=== PATIENT | female | born 1945 | race Caucasian/White ===

== ENCOUNTER 2016-08-02 09:46 | Inpatient (IN) | payer OTHER ==
[~2016-08-02] VITALS: Ht 160 cm; Wt 98.9 kg
[2016-08-02 09:47] VITALS: BP 136/102; PULSE 91; RESP 24; TEMP 99; O2SAT 90
--- NOTE | 2016-08-02 09:47 | NUR ---
Arrived as walk in in distress with 1-2 word sentences audible wheezes, accessory muscle use. After sitting for 2-3 min during triage at bedside, resp status appears improved speaking in full sentences. C/O cough, bronchitis. Placed in room 1 . Placed on ladle filler, blood pressure machine and pulse oximeter. To gown for exam. Side rails up. Report given to Krysten KIMBLE.
--- NOTE | 2016-08-02 09:52 | NUR ---
Patient alert and oriented x4. Speaking in full sentences, no acute respiratory distress noted at this time, patient states after sitting in bed that distress improved. has had intermittent shortness of breath at home for a long time at home but came to ER today because shortness of breath worsened, especially with walking. Wheezing noted throughout lung feilds. also has had productive cough for a few days. Denies chest pain, pressure or radiating pain of any kind. No other complaints/injuries per patient or noted.
--- NOTE | 2016-08-02 09:53 | NUR ---
Dr. Larson at bedside
[2016-08-02] MEDS ORDERED: methylPREDNISolone SOD SUCC/PF 62.5 MG/ML VIAL IVP ONE (10:00)
[2016-08-02] MEDS ORDERED: ALBUTEROL SULFATE 0.083% 2.5 MG/3 ML VIAL.NEB IH ONE ×2 (10:00→11:30)
[2016-08-02] MEDS ORDERED: IPRATROPIUM BROM 0.5 MG/2.5 ML VIAL.NEB (ATROVENT) IH ONE (10:00)
[2016-08-02] MEDS ORDERED: IPRATROPIUM/ALBUTEROL SULFATE 3 ML AMPUL.NEB ONE (10:05)
--- NOTE | 2016-08-02 10:15 | NUR ---
Patient placed on 2L 02 following ABG blood draw and RT treatment due to 02 saturation dropping to 88-89 at times on room air. Dr Larson aware. Addendum: 08/02/16 at 1210 by CONCHITA %
[2016-08-02 10:17] LABS: ABG TOTAL HEMOGLOBIN 14.1 G/dL (12.0-18.0); BLOOD GAS BASE EXCESS 1.9 mmol/L (-3.0-3.0); BLOOD GAS COHb% 0.6 % (0.5-1.5); BLOOD GAS HHB 10.7 % (0.0-6.0); BLOOD GAS PH 7.422 (7.350-7.450); BLOOD O2Hb% 88.4 % (94.0-97.0)
[2016-08-02 10:22] LABS: BASOPHILS % (AUTO) 0.2 % (0.0-2.0); EOSINOPHILS # (AUTO) 0.2 K/uL (0.0-0.4); EOSINOPHILS % (AUTO) 1.4 % (0.0-4.0); HEMATOCRIT 40.8 % (36-48); HEMOGLOBIN 13.5 g/dL (12.0-16.0); LYMPHOCYTES # (AUTO) 1.6 K/uL (1.0-5.5); LYMPHOCYTES % (AUTO) 9.8 % (20.5-51.5); MEAN CORPUSCULAR HEMOGLOBIN 28 pg (27-31); MEAN CORPUSCULAR HGB CONC 33 % (32-36); MEAN CORPUSCULAR VOLUME 84 fL (79.0-98.0); MONOCYTES # (AUTO) 0.6 K/uL (0.0-1.0); MONOCYTES % (AUTO) 3.5 % (1.7-9.3); NEUTROPHILS # (AUTO) 14.1 K/uL (1.8-7.7); NEUTROPHILS % (AUTO) 85.1 % (40.0-70.0); PLATELET COUNT (AUTO) 348 K/uL (130-430); RED BLOOD CELL COUNT(AUTO) 4.86 MIL/uL (4.2-6.2); RED CELL DISTRIBUTION WIDTH 13.8 % (9.0-15.0); WHITE BLOOD COUNT (AUTO) 16.5 K/uL (4.8-10.8)
[2016-08-02 10:33] LABS: CREATININE 1.11 mg/dL (0.55-1.30); POTASSIUM 4.1 mmol/L (3.5-5.1)
[2016-08-02 10:38] LABS: TOTAL PROTEIN, SERUM 7.6 g/dL (6.4-8.3)
[2016-08-02 11:03] LABS: BILIRUBIN,URINE NEGATIVE (NEGATIVE); CLARITY/URINE CLEAR (CLEAR); COLOR,URINE YELLOW (YELLOW); GLUCOSE,URINE NEGATIVE (NEGATIVE); KETONES,URINE NEGATIVE (NEGATIVE); LEUKOCYTE ESTERASE ,URINE TRACE (NEGATIVE); NITRITE, URINE NEGATIVE (NEGATIVE); PH,URINE 5.5 (5.0-8.0); PROTEIN URINE 2+ (NEGATIVE); UROBILINOGEN,URINE 0.2 (0.2-1.0)
[2016-08-02 11:10] LABS: BLOOD, URINE TRACE (NEGATIVE)
[2016-08-02] MEDS ORDERED: cefTRIAXone 1 GM IVPB PREMIX 50 ML IV ONE (11:15)
[2016-08-02] MEDS ORDERED: ENAL5TAB85 PO (11:24)
[2016-08-02] MEDS ORDERED: AMLO5TAB4 PO (11:24)
[2016-08-02] MEDS ORDERED: ACET-1172 PO (11:24)
[2016-08-02] MEDS ORDERED: OMEP10CA4 PO (11:24)
[2016-08-02] MEDS ORDERED: DIAZ2TAB3 PO (11:24)
[2016-08-02] MEDS ORDERED: MECL-123 PO (11:24)
[2016-08-02] MEDS ORDERED: OMEG1CAP55 PO (11:24)
[2016-08-02] MEDS ORDERED: TOPXL100 PO (11:24)
[2016-08-02] MEDS ORDERED: HYDR12.55 PO (11:24)
--- NOTE | 2016-08-02 11:25 | NUR ---
Patient just placed on breathing treatment, tolerating well, will take to floor when finished.
--- NOTE | 2016-08-02 11:25 | NUR ---
Medication reconciliation completed with information provided by patient . Any prior medication reconciliation on file was reviewed and corrected.
[2016-08-02 11:29] LABS: BACTERIA,URINE FEW /HPF (None Seen)
[2016-08-02 11:30] LABS: MUCUS,URINE 1+ /LPF (None Seen)
--- NOTE | 2016-08-02 11:42 | NUR ---
ADMIT NOTE Received pt from ER to the floor with a diagnosis of COPD exacerbation, acute respiratory insufficiency. Admission process initiated. Patient oriented to pain management, safety and call light-teach back done.
[2016-08-02 11:51] VITALS: BP 143/64; PULSE 97; RESP 16; TEMP 98; O2SAT 91
--- NOTE | 2016-08-02 11:51 | NUR ---
Patient will be admitted to care of Dr. Cheema. Admitted to tele unit. Will go to room 135 admit room. Summary report printed. Report given to Carrie KIMBLE at bedside.
--- NOTE | 2016-08-02 12:30 | NUR ---
Initial Notes Pt aaox4 with complaints of mild headache. States she is hungry and maybe headache is from hunger. Informed pt lunch tray will be delivered shortly. Mild sob while talking but no distress noted. O2 via nasal canula in place @ 2L. Educated about fall and safety precautions. Encouraged to call for assistance. Call light within reach. Will monitor.
--- NOTE | 2016-08-02 14:30 | NUR ---
Rounds Pt asleep. No signs of facial grimacing for pain or discomfort. No distress noted. Will monitor.
--- NOTE | 2016-08-02 15:46 | NUR ---
Headache Pt complaints of headache and wants to take her routine medications at home. Informed pt that MD needs to review all home medications when she comes and does her rounds. Pt verbalized understanding.
[2016-08-02 15:51] VITALS: BP 131/58; PULSE 100; RESP 21; TEMP 97.6; O2SAT 91
[2016-08-02] MEDS ORDERED: ACETAMINOPHEN/CODEINE 300 MG-30 MG TABLET PO SCH (16:00)
[2016-08-02] MEDS ORDERED: ACETAMINOPHEN 325 MG TABLET PO PRN (16:00)
[2016-08-02] MEDS ORDERED: ACETAMINOPHEN/CODEINE 300 MG-30 MG TABLET PO ONE (16:00)
--- NOTE | 2016-08-02 16:00 | NUR ---
Dr. Anette SUTTON inside room assessing patient. Plan of care discussed.
[2016-08-02] MEDS ORDERED: IPRATROPIUM/ALBUTEROL SULFATE 3 ML AMPUL.NEB INH ONE (16:15)
[2016-08-02] MEDS ORDERED: ZOLPIDEM TARTRATE 5 MG TABLET PO PRN (16:15)
[2016-08-02] MEDS ORDERED: DIAZEPAM 2 MG TABLET (VALIUM) PO PRN (16:30)
[2016-08-02] MEDS ORDERED: PANTOPRAZOLE SODIUM 40 MG TAB PO ONE (16:45)
--- NOTE | 2016-08-02 17:02 | NUR ---
CONSULT PULMO HYPOXEMIA,COPD DR BRODY [phone] DR SANCHEZ HEAT REGULATOR S/W IDALIA EXCHANGE @ [phone]
[2016-08-02 17:56] VITALS: BP 131/58; PULSE 100
--- NOTE | 2016-08-02 18:30 | NUR ---
Closing notes Pt awake resting in bed. No complaints of pain at this time. Mild shortness of breath and difficulty breathing when patient starts talking and laughing. No distress noted. O2 via nasal canula @ 2L in place. Encouraged to call for assistance. Will endorse care to incoming nurse.
[2016-08-02 20:00] VITALS: BP 158/72; PULSE 107; RESP 20; TEMP 97.6; O2SAT 94
--- NOTE | 2016-08-02 20:00 | NUR ---
Initial PM Note Pt was received lying in bed fully AAO x4. No acute distress noted and no c/o pain or discomfort. Oxygen is on at 2L/min per NC and oxygen saturation is 94%. parts washer verified to be correct box for pt and it is showing sinus tachycardia with HR in the low 100's. Plan of care was discussed with pt. Saline lock is intact in RAC and no signs of infiltration noted at the IV site. Fall and safety precautions are in place. Pt was instructed to call for assistance as needed and pt verbalized understanding. Call light is with pt. Bed is in locked and lowest positions. Will continue to monitor pt.
[2016-08-02] MEDS: guaiFENesin/DEXTROMETHORPHAN 1 EACH TAB.ER.12H PO SCH (20:31)
[2016-08-02] MEDS: IPRATROPIUM/ALBUTEROL SULFATE 3 ML AMPUL.NEB INH SCH ×2 (20:38→20:39)
[2016-08-02] MEDS ORDERED: guaiFENesin/DEXTROMETHORPHAN 1 EACH TAB.ER.12H PO SCH (21:00)
[2016-08-02] MEDS ORDERED: METOPROLOL SUCCINATE 50 MG TAB.SR.24H (TOPROL XL) PO SCH (21:00)
--- NOTE | 2016-08-02 22:00 | NUR ---
Anxiety Pt is very anxious, but declined Valium or Ambien. Pt stated she needed Metoprolol because her heart rates are usually in the 80's, not in the 100's. Pt also informed RT she wanted her Albuterol HHN Tx reduced from 2.5mg to 1.25mg. MD was paged and pt was informed.
[2016-08-02] MEDS: methylPREDNISolone SOD SUCC/PF 62.5 MG/ML VIAL IVP SCH (22:15)
--- NOTE | 2016-08-02 22:28 | NUR ---
Dr. Anette Cheema called back and ordered one time Metoprol po. Albuterol HHN Tx was also reduced from 2.5mg q 6hrs to 1.25mg q 6hrs.
[2016-08-02] MEDS ORDERED: METOPROLOL SUCCINATE 50 MG TAB.SR.24H (TOPROL XL) PO ONE (22:30)
--- NOTE | 2016-08-03 | NUR ---
Rounds Pt is sleeping comfortably in bed. No acute distress noted. Call light is with pt.
[2016-08-03] MEDS: ALBUTEROL SULFATE 0.083% 2.5 MG/3 ML VIAL.NEB INH SCH ×2 (01:00→07:00)
--- NOTE | 2016-08-03 02:00 | NUR ---
Rounds Pt is sleeping without any distress noted. Call light is with pt.
--- NOTE | 2016-08-03 04:00 | NUR ---
Rounds Pt is sleeping quietly in bed.
[2016-08-03 04:10] VITALS: BP 138/72; PULSE 108; RESP 20; TEMP 98.9; O2SAT 94
[2016-08-03] MEDS: methylPREDNISolone SOD SUCC/PF 62.5 MG/ML VIAL IVP SCH ×3 (06:04→21:19)
--- NOTE | 2016-08-03 06:30 | NUR ---
Closing Note Pt is awake and resting comfortably in bed. All pt's needs were attended to. No fall or injury noted this shift. Will endorse to day shift nurse.
[2016-08-03 07:33] LABS: ALBUMIN 3.5 g/dL (3.4-4.8); CALCIUM 8.9 mg/dL (8.4-11.0); CREATININE 0.96 mg/dL (0.55-1.30); POTASSIUM 3.8 mmol/L (3.5-5.1); THYROID STIMULATING HORMONE 0.25 uIu/mL (0.34-4.82); TOTAL BILIRUBIN 0.4 mg/dL (0.0-1.0); TOTAL PROTEIN, SERUM 6.8 g/dL (6.4-8.3)
--- NOTE | 2016-08-03 08:00 | NUR ---
A/OX4, BREATHING EVEN AND UNLABORED WITH BILAT WHEEZES;WITH O2 AT 2L NC .IV SALINE LOCK TO RIGHT AC, #20, INTACT AND PATENTSAFETY AND FALL PRECAUTIONS IN PLACE.CALL LIGHT WITHIN REACH.
[2016-08-03 08:05] LABS: HEMATOCRIT 36.5 % (36-48); HEMOGLOBIN 12.4 g/dL (12.0-16.0); LYMPHOCYTES # (AUTO) 1.2 K/uL (1.0-5.5); LYMPHOCYTES % (AUTO) 9.5 % (20.5-51.5); MEAN CORPUSCULAR HEMOGLOBIN 28 pg (27-31); MEAN CORPUSCULAR HGB CONC 34 % (32-36); MEAN CORPUSCULAR VOLUME 84 fL (79.0-98.0); MONOCYTES # (AUTO) 0.2 K/uL (0.0-1.0); NEUTROPHILS # (AUTO) 10.9 K/uL (1.8-7.7); NEUTROPHILS % (AUTO) 88.5 % (40.0-70.0); PLATELET COUNT (AUTO) 306 K/uL (130-430); RED BLOOD CELL COUNT(AUTO) 4.38 MIL/uL (4.2-6.2); RED CELL DISTRIBUTION WIDTH 13.8 % (9.0-15.0); WHITE BLOOD COUNT (AUTO) 12.3 K/uL (4.8-10.8)
[2016-08-03] MEDS: ENALAPRIL MALEATE 5 MG TABLET (VASOTEC) PO SCH (08:37)
[2016-08-03] MEDS: guaiFENesin/DEXTROMETHORPHAN 1 EACH TAB.ER.12H PO SCH ×2 (08:37→21:19)
[2016-08-03] MEDS: amLODIPine BESYLATE 5 MG TABLET PO SCH (08:38)
[2016-08-03] MEDS: PANTOPRAZOLE SODIUM 40 MG TAB PO SCH (08:38)
[2016-08-03] MEDS: ACETAMINOPHEN/CODEINE 300 MG-30 MG TABLET PO PRN ×2 (08:53→17:41)
[2016-08-03] MEDS ORDERED: METOPROLOL SUCCINATE 50 MG TAB.SR.24H (TOPROL XL) PO SCH (09:00)
--- NOTE | 2016-08-03 10:20 | NUR ---
CARE DELEGATED TO LAMIN HOGUE. REPORT IS GIVEN TO HER
--- NOTE | 2016-08-03 11:20 | NUR ---
INITIAL NOTES RECEIVED PATIENT ON BED AWAKE.BREATHING EVEN AND UNLABORED WITH BILATERAL FAINT WHEEZES;WITH O2 AT 2L/M VIA NASAL CANNULA.WITH FEW EPISODES OF NONPRODUCTIVE COUGH.IV SALINE LOCK TO RIGHT ANTECUBITAL INTACT AND PATENT;NO SIGNS AND SYMPTOMS OF INFILTRATION.SAFETY AND FALL PRECAUTIONS IN PLACE.CALL LIGHT WITHIN REACH
[2016-08-03] MEDS: cefTRIAXone 1 GM IVPB PREMIX 50 ML IV SCH (11:49)
[2016-08-03 12:00] VITALS: BP 138/64; PULSE 97; RESP 21; TEMP 96.6; O2SAT 91
--- NOTE | 2016-08-03 12:22 | NUR ---
NOTES DR. ISBELL CAME AND EXAMINED THE PATIENT;WITH ORDERS MADE AND CARRIED OUT
--- NOTE | 2016-08-03 15:00 | NUR ---
NOTES CHECKED PATIENT;NO ACUTE DISTRESS
[2016-08-03 16:00] VITALS: BP 149/97; PULSE 92; RESP 21; TEMP 97.4; O2SAT 91
[2016-08-03] MEDS: LevALBUTEROL HCL 1.25 MG/0.5 ML *CONC.* VIAL.NEB (XOPENEX CONC.) INH SCH ×2 (16:56→19:00)
--- NOTE | 2016-08-03 17:30 | NUR ---
NOTES CHECKED PATIENT;NEEDS ATTENDED TO
--- NOTE | 2016-08-03 18:22 | NUR ---
CLOSING NOTES PATIENT ON BED AWAKE.BREATHING EVEN AND UNLABORED.NO ACUTE DISTRESS.IV SALINE LOCK INTACT AND PATENT;NO SIGNS AND SYMPTOMS OF INFILTRATION.SAFETY AND FALL PRECAUTIONS IN PLACE.CALL LIGHT WITHIN REACH.WILL ENDORSE TO NEXT SHIFT ACCORDINGLY
[2016-08-03] MEDS: IPRATROPIUM BROM 0.5 MG/2.5 ML VIAL.NEB (ATROVENT) INH SCH (19:15)
[2016-08-03 20:00] VITALS: BP 132/87; PULSE 74; RESP 20; TEMP 97.2; O2SAT 95
--- NOTE | 2016-08-03 20:00 | NUR ---
Initial PM Note Pt was received lying in bed fully AAO x4. Speech is clear and pt is able to make her needs known. Pt stated she had 3 soft bowel movements today and MD should be notified for diarrhea medication. Pt was informed if the stools were not watery, MD probably would not order medication. Pt stated an order should be obtained just in case diarrhea starts later. Pt informed MD would be paged. Oxygen is on at 2L/min per NC and oxygen saturation is 95%. bus driver/monitor is showing SR with HR in the 70's. Saline lock is intact in RAC and no signs of infiltration noted. Fall and safety precautions are in place. Pt was instructed to call for assistance as needed and pt verbalized understanding. Call light is with pt. Bed is in locked and lowest positions. Will continue to monitor pt.
--- NOTE | 2016-08-03 20:17 | NUR ---
PAGED PAGED CARLINE HUNTER AT [phone] SPOKE WITH NATALIA.
--- NOTE | 2016-08-03 21:00 | NUR ---
2ND PAGE OUT TO CARLINE BROWN AT [phone] SPOKE WITH ADONAY.
--- NOTE | 2016-08-03 21:05 | NUR ---
Dr. Anette Cheema called back and was informed pt is requesting diarrhea medication because pt had 3 soft bowel movements today. Dr. Cheema was informed pt is requesting the medication order in advance in case pt develops diarrhea. Dr. Cheema stated she would not order any diarrhea medication in advance. Pt was informed.
--- NOTE | 2016-08-03 22:30 | NUR ---
Rounds Pt is sleeping comfortably in bed with oxygen on at 2.5L/min per NC. No respiratory distress noted. Call light is with pt.
[2016-08-04 00:10] VITALS: BP 155/83; PULSE 74; RESP 18; TEMP 98.4; O2SAT 97
--- NOTE | 2016-08-04 00:30 | NUR ---
Rounds Pt is sleeping comfortably in bed. No acute distress noted. Call light is with pt.
[2016-08-04] MEDS: LevALBUTEROL HCL 1.25 MG/0.5 ML *CONC.* VIAL.NEB (XOPENEX CONC.) INH SCH ×2 (01:00→07:00)
--- NOTE | 2016-08-04 02:30 | NUR ---
Rounds Pt is sleeping comfortably in bed. Call light is with pt.
[2016-08-04 04:23] VITALS: BP 155/75; PULSE 77; RESP 20; TEMP 97.5; O2SAT 94
--- NOTE | 2016-08-04 04:30 | NUR ---
Rounds Pt is sleeping without any distress noted. Call light is with pt.
[2016-08-04] MEDS: methylPREDNISolone SOD SUCC/PF 62.5 MG/ML VIAL IVP SCH ×3 (06:01→22:05)
[2016-08-04 07:08] LABS: BASOPHILS % (AUTO) 0.1 % (0.0-2.0); EOSINOPHILS % (AUTO) 0.1 % (0.0-4.0); HEMATOCRIT 37.4 % (36-48); HEMOGLOBIN 12.9 g/dL (12.0-16.0); LYMPHOCYTES # (AUTO) 1.5 K/uL (1.0-5.5); LYMPHOCYTES % (AUTO) 8.8 % (20.5-51.5); MEAN CORPUSCULAR HEMOGLOBIN 29 pg (27-31); MEAN CORPUSCULAR HGB CONC 34 % (32-36); MEAN CORPUSCULAR VOLUME 83 fL (79.0-98.0); MONOCYTES # (AUTO) 0.4 K/uL (0.0-1.0); MONOCYTES % (AUTO) 2.6 % (1.7-9.3); NEUTROPHILS # (AUTO) 14.8 K/uL (1.8-7.7); NEUTROPHILS % (AUTO) 88.4 % (40.0-70.0); PLATELET COUNT (AUTO) 353 K/uL (130-430); RED CELL DISTRIBUTION WIDTH 13.9 % (9.0-15.0); WHITE BLOOD COUNT (AUTO) 16.7 K/uL (4.8-10.8)
[2016-08-04 07:33] LABS: CALCIUM 8.7 mg/dL (8.4-11.0); CHLORIDE 100 mmol/L (98-107); CREATININE 1.04 mg/dL (0.55-1.30); GLUCOSE 125 mg/dL (70-99); UREA NITROGEN, BLOOD 30 mg/dL (8-21)
--- NOTE | 2016-08-04 07:45 | NUR ---
AM ROUNDS AWAKE, ALERT, ORIENTED. RECEIVING HER BREATHING TREATMENT, NOTED TO GET SHORT OF BREATH ON EXERTION. NOTED EXPIRATORY WHEEZING. IV LOCK ON RT ANTECUBITAL. NOTED TO BE SHAKY SEC. TO BREATHING MED PER PT.
[2016-08-04 07:57] LABS: POTASSIUM 4.3 mmol/L (3.5-5.1); SODIUM SERUM 134 mmol/L (136-145)
[2016-08-04 08:00] VITALS: BP 138/75; PULSE 90; RESP 22; TEMP 96.7
[2016-08-04 08:02] LABS: ANION GAP < 3 (5-15); GFR AFRICAN AMERICAN 67 mL/min (>90)
[2016-08-04] MEDS: guaiFENesin/DEXTROMETHORPHAN 1 EACH TAB.ER.12H PO SCH ×2 (08:24→22:05)
[2016-08-04] MEDS: ACETAMINOPHEN/CODEINE 300 MG-30 MG TABLET PO PRN ×2 (08:26→19:16)
[2016-08-04] MEDS: amLODIPine BESYLATE 5 MG TABLET PO SCH (08:27)
[2016-08-04] MEDS: PANTOPRAZOLE SODIUM 40 MG TAB PO SCH (08:27)
[2016-08-04] MEDS: ENALAPRIL MALEATE 5 MG TABLET (VASOTEC) PO SCH (08:28)
--- NOTE | 2016-08-04 08:30 | NUR ---
RN NOTES DUE MEDS GIVEN, RECHECKED O2 SAT ON 2L/NC 95%, STILL WHEEZING. PT. BEEN GETTING TO RESTROOM BY HERSELF. INSTRUCTED TO CALL NURSE FOR HELP AND USE OF CALL LIGHT AND VERBALIZED UNDERSTANDING.
[2016-08-04] MEDS: cefTRIAXone 1 GM IVPB PREMIX 50 ML IV SCH (11:33)
--- NOTE | 2016-08-04 11:45 | NUR ---
RN NOTES IV ANTIBIOTIC DUE , SITE CHECKED AND LEAKING, INFORMED PT. WILL START ANOTHER SITE.
[2016-08-04 12:00] VITALS: BP 141/65; PULSE 92; RESP 21; TEMP 98; O2SAT 95
[2016-08-04] MEDS: IPRATROPIUM BROM 0.5 MG/2.5 ML VIAL.NEB (ATROVENT) INH SCH ×3 (12:00→14:26)
--- NOTE | 2016-08-04 12:15 | NUR ---
DR. ISBELL HERE AT BEDSIDE ANF INFORMED PT. PLAN OF CARE.
--- NOTE | 2016-08-04 12:30 | NUR ---
RN NOTES TRIED TO INSERT IV BUT UNSUCCESSFUL, ASKED LAMIN HAMMER AND ALSO UNSUCCESSFUL. ALLOW PT. TO EAT LUNCH FIRST AND WILL TRY LATER AND PT. AGREED.
--- NOTE | 2016-08-04 13:50 | NUR ---
RN NOTES TRIED TO INSERT IV AND WAS SUCCESSFUL, GAUGE 22 ON RT. WRIST AREA, DUE MEDS GIVEN.
[2016-08-04] MEDS: LEVALBUTEROL HCL 0.63 MG/3 ML VIAL.NEB INH SCH ×2 (14:25→19:48)
[2016-08-04 16:00] VITALS: BP 144/90; PULSE 98; RESP 21; TEMP 97; O2SAT 93
--- NOTE | 2016-08-04 16:00 | NUR ---
RN NOTES PT. AWAKE SITTING AT THE EDGE OF THE BED. NEEDS ATTENDED.
--- NOTE | 2016-08-04 18:49 | NUR ---
CLOSING NOTES PT. REMAINS AWAKE IN BED, O2 ON , STILL WHEEZING WITH SCHEDULED BREATHING TREATMENT, IV LOCK INTACT. CONDITION OBSERVED REMAINS SR. INFORMED PT. ABOUT CHANGE OF SHIFT.
[2016-08-04 19:10] VITALS: BP 133/83; PULSE 94; RESP 20; TEMP 97.5; O2SAT 95
--- NOTE | 2016-08-04 19:10 | NUR ---
INITIAL ROUNDS RECVD PT IN BED, A/A/O X 4. NO SOB AND NO C/O PAIN @ THIS TIME. V/S 133/83,97.5,94,20,95% 2.5L N/C. IV NOTED TO R WRIST G 22 NO INFILTRATE AND WITH GOOD BLOOD RETURN. ALL EXTREMITIES ARE STRONG, BRP. DISCUSSED PLAN OF CARE WITH PT AND VERBALIZED UNDERSTANDING. BED IN LOW POSITION WITH CALL LIGHT WITHIN REACH. WILL CONT TO MONITOR.
--- NOTE | 2016-08-04 19:15 | NUR ---
NOTES ENDORSED PT. TO INCOMING SHIFT WITH NURSE BUCIO.
--- NOTE | 2016-08-04 19:17 | NUR ---
pain meds: c/o right shoulder pain and due po pain meds given per request.
--- NOTE | 2016-08-04 21:10 | NUR ---
ROUNDS PT IS AWAKE WATCHING TV @ THIS TIME. NO C/O PAIN AND NO SOB NOTED. BED IN LOW POSITION WITH CALL LIGHT WITHIN REACH. WILL CONT TO MONITOR.
--- NOTE | 2016-08-04 23:10 | NUR ---
ROUNDS PT IS COMFORTABLY RESTING 2 THIS TIME. NO S/S OF PAIN AND NO DISTRESS NOTED. BED IN LOW POSITION WITH CALL LIGHT WITHIN REACH. WILL CONT TO MONITOR.
[2016-08-05] VITALS (10 sets, daily range): BP systolic 134–149; BP diastolic 64–86; PULSE 81–106; RESP 18–20; TEMP 96.6–98; O2SAT 92–96
[2016-08-05] MEDS: LEVALBUTEROL HCL 0.63 MG/3 ML VIAL.NEB INH SCH ×4 (01:05→19:47)
[2016-08-05] MEDS: ACETAMINOPHEN/CODEINE 300 MG-30 MG TABLET PO PRN ×3 (01:27→19:30)
--- NOTE | 2016-08-05 03:10 | NUR ---
ROUNDS PT IS COMFORTABLY RESTING @ THIS TIME. NO S/S OF PAIN AND NO DISTRESS NOTED. BED IN LOW POSITION WITH CALL LIGHT WITHIN REACH. WILL CONT TO MONITOR.
--- NOTE | 2016-08-05 04:10 | NUR ---
ADMIN NORCO PRN FOR PAIN NORCO WAS ADMIN PRN FOR PAIN. WILL REASSESS AFTER 1HOUR.
[2016-08-05] MEDS: methylPREDNISolone SOD SUCC/PF 62.5 MG/ML VIAL IVP SCH (05:35)
--- NOTE | 2016-08-05 06:57 | NUR ---
FINAL NOTES PT IS COMFORTABLY RESTING IN BED. NO S/S OF PAIN OR ANY DISTRESS. V/S ARE WNL. ALL NEEDS MET AND ANTICIPATED BY NOC NURSES. BED IN LOW POSITION WITH CALL LIGHT WITHIN REACH. ENDORSED.
--- NOTE | 2016-08-05 07:30 | NUR ---
AM ROUNDS pt. still sleeping on change of shift. in no acute distress. call light within reach.
[2016-08-05] MEDS: IPRATROPIUM BROM 0.5 MG/2.5 ML VIAL.NEB (ATROVENT) INH SCH ×2 (08:01→13:20)
[2016-08-05] MEDS: ENALAPRIL MALEATE 5 MG TABLET (VASOTEC) PO SCH (08:13)
[2016-08-05] MEDS: amLODIPine BESYLATE 5 MG TABLET PO SCH (08:13)
[2016-08-05] MEDS: PANTOPRAZOLE SODIUM 40 MG TAB PO SCH (08:14)
[2016-08-05] MEDS: guaiFENesin/DEXTROMETHORPHAN 1 EACH TAB.ER.12H PO SCH ×2 (08:14→21:47)
--- NOTE | 2016-08-05 08:21 | NUR ---
PAIN MEDS: C/O LOWER BACK PAIN AND DUE PO PAIN MEDS GIVEN PER REQUEST.
--- NOTE | 2016-08-05 10:00 | NUR ---
RN NOTES PT. RESTING QUIETLY. NEEDS ATTENDED. INSTRUCTED TO CALL NURSE FOR HELP AND VERBALIZED UNDERSTANDING.
[2016-08-05] MEDS: cefTRIAXone 1 GM IVPB PREMIX 50 ML IV SCH (11:21)
--- NOTE | 2016-08-05 11:45 | NUR ---
RN NOTES pt. awake, blood sugar checked. still noted productive cough and occasional wheezing param. on exertion , but in no acute distress.
--- NOTE | 2016-08-05 15:40 | NUR ---
ROUNDS pt. sleeping when checked.
--- NOTE | 2016-08-05 18:22 | NUR ---
CLOSING NOTES pt. awake, eating her dinner, denies any discomfort at this time. still with occ. bouts of cough and wheezing. IV site intact. will endorse to incoming shift. condition unchanged.
--- NOTE | 2016-08-05 19:15 | NUR ---
RN Notes ENDORSED PT. TO DELINQUENCY PREVENTION SOCIAL WORKER WITH NURSE SORTO.
--- NOTE | 2016-08-05 19:15 | NUR ---
change of shift.pt.initial assessment.pt.presents dyspnea:o2 sat%=95@2.5 l/min via nasal cannulae.pt.requesting pain medication:2 f/u review pt's emar list.
--- NOTE | 2016-08-05 19:30 | NUR ---
i have administered tylenol#3 po 1tab:re:pain mgx.2 /fu re:medication efficacy.no other request.call light w/in pt's reach.
--- NOTE | 2016-08-05 20:00 | NUR ---
pt.assessed.v/s assessed.o2 sat%=96%@2.5l./min via nc.snacks provided.call light w/in pt's reach.
--- NOTE | 2016-08-05 21:00 | NUR ---
2100p medications administered.solumedrol:ivp,mucinex:po.snacks provided.call light w/n pt's reach.
[2016-08-05] MEDS: methylPREDNISolone SOD SUCC 40 MG/ML VIAL IVP SCH (21:46)
--- NOTE | 2016-08-05 22:00 | NUR ---
pt.assessed.o2 sat%=95%@2.5 l/min via nc.no request@this hour.call light w/in pt's reach.
--- NOTE | 2016-08-06 | NUR ---
pt.assessed.v/s assessed.pt.presented w/snacks.pt.presents stable status.call light w/in reach. Addendum: 08/06/16 at 0628 by Abner Soliman RN v/s assessed.o2 sat%=95%@2.5 l/min via nc.
[2016-08-06] MEDS: LEVALBUTEROL HCL 0.63 MG/3 ML VIAL.NEB INH SCH ×4 (00:02→19:43)
[2016-08-06 00:46] VITALS: BP 149/85; PULSE 85; RESP 18; TEMP 97.9; O2SAT 93
--- NOTE | 2016-08-06 02:00 | NUR ---
pt.assessed.pt.presents quiescent affect;calm,asleep.call light w/in pt's reach.
--- NOTE | 2016-08-06 03:15 | NUR ---
pt.requested pain meidasctyion.i have administered tylenol:#3 po 1 tab.2 f/u re:efficacy of pain medication.
[2016-08-06] MEDS: ACETAMINOPHEN/CODEINE 300 MG-30 MG TABLET PO PRN ×4 (03:16→20:19)
--- NOTE | 2016-08-06 04:00 | NUR ---
pt.assessed.pt.status apin;medication effective.no other c/o.v/s assessed.o2 sat%=96%@2.5 l/min via nc.
[2016-08-06 04:19] VITALS: BP 155/94; PULSE 98; RESP 19; TEMP 96.6; O2SAT 93
--- NOTE | 2016-08-06 06:00 | NUR ---
pt.assessed.pt.presents quiescent affect;calm,asleep.no distress/discomfort manifested. call light w/in pt's reach.
[2016-08-06] MEDS: IPRATROPIUM BROM 0.5 MG/2.5 ML VIAL.NEB (ATROVENT) INH SCH ×4 (07:35→19:43)
[2016-08-06 07:43] VITALS: BP 139/78; PULSE 104; RESP 18; TEMP 98; O2SAT 93
[2016-08-06] MEDS: amLODIPine BESYLATE 5 MG TABLET PO SCH (08:48)
[2016-08-06] MEDS: ENALAPRIL MALEATE 5 MG TABLET (VASOTEC) PO SCH (08:49)
[2016-08-06] MEDS: methylPREDNISolone SOD SUCC 40 MG/ML VIAL IVP SCH (08:49)
[2016-08-06] MEDS: PANTOPRAZOLE SODIUM 40 MG TAB PO SCH (08:49)
[2016-08-06] MEDS: guaiFENesin/DEXTROMETHORPHAN 1 EACH TAB.ER.12H PO SCH ×2 (10:19→20:16)
[2016-08-06 11:38] VITALS: BP 137/75; PULSE 106; RESP 20; TEMP 96.1; O2SAT 95
[2016-08-06] MEDS: cefTRIAXone 1 GM IVPB PREMIX 50 ML IV SCH (12:45)
--- NOTE | 2016-08-06 13:41 | NUR ---
Dr Hernandez at bedside speaking to patient and assessing patient.
[2016-08-06 14:27] VITALS: Ht 160 cm; Wt 98.9 kg
[2016-08-06] MEDS ORDERED: FAMOTIDINE 20 MG TABLET PO ONE (14:30)
[2016-08-06] MEDS ORDERED: PREDNISONE 20 MG TABLET PO ONE (14:30)
--- NOTE | 2016-08-06 14:43 | NUR ---
Rounds Pt due meds administered. Prednisone PO 20mg dose held as pt has already received Solumedrol 40mg IVP this AM. Pt educated on medication and that the next dose will be at 2100.
[2016-08-06] MEDS: AZITHROMYCIN 500 MG in NS 250 ML IV SCH (15:53)
--- NOTE | 2016-08-06 16:07 | NUR ---
Rounds Patient resting no distress, due antibiotics started at this time. Late administration due to not available from the pharmacy.
[2016-08-06 16:39] VITALS: BP 161/56; PULSE 84; RESP 20; TEMP 96.2; O2SAT 96
[2016-08-06] MEDS: MONTELUKAST 10 MG TABLET PO SCH (17:36)
--- NOTE | 2016-08-06 18:00 | NUR ---
ROUNDS PT SITTING UP, EATING DINNER. SHE SAID SHE IS FEELING BETTER AND DOES NOT WANT TO TAKE ANTI-ANXIETY PRN AT THIS TIME. SHE IS CONCERNED ABOUT HER IV AND I EDUCATED HER ON PROPER HAND PLACEMENT FOR OPTIMAL PATENCY. BED IN LOWEST POSITION AND CALL LIGHT WITHIN REACH
--- NOTE | 2016-08-06 18:41 | NUR ---
CLOSING NOTE PT IS RESTING IN BED, WATCHING TV. SHE SAID SHE HAS A MILD HEADACHE BUT THAT IT DOES NOT REQUIRE PRN ANALGESIC AT THIS TIME. SHE APPEARS TO BE ANXIOUS BUT SHE STATED SHE DOES NOT NEED ANTI-ANXIETY PRN. BED IN LOWEST POSITION AND CALL LIGHT WITHIN REACH
[2016-08-06 19:40] VITALS: BP 121/87; PULSE 86; RESP 18; TEMP 97; O2SAT 98
--- NOTE | 2016-08-06 19:40 | NUR ---
Initial Notes Pt is A/OX4. Pt is pleasant and cooperative. VSS. Plan of care discussed with pt, pt verbalized understanding. Pt is on 2L N/C with O2 saturation at 98%. IV intact. Breathing is even and unlabored, with some audible wheezing. Snacks provided. Safety precautions in place, side rails up x3 with bed in lowest, locked position. Pt is ambulatory with assist. Pt educated contractor general building light use and correct back demonstration noted. All needs met at this time. Call light in hand. Will continue to monitor.
[2016-08-06] MEDS: FAMOTIDINE 20 MG TABLET PO SCH (20:16)
[2016-08-06] MEDS: PREDNISONE 20 MG TABLET PO SCH (20:16)
--- NOTE | 2016-08-06 21:54 | NUR ---
Pain Management Pt c/o headache 11/14. Patient requested Tylenol for pain. Pt medicated with Tylenol with codeine as ordered. No acute distress noted. Call light in hand. Will continue to monitor.
[2016-08-07] VITALS (8 sets, daily range): BP systolic 140–157; BP diastolic 74–98; PULSE 79–99; RESP 16–18; TEMP 96.8–98; O2SAT 91–96
[2016-08-07] MEDS: LEVALBUTEROL HCL 0.63 MG/3 ML VIAL.NEB INH SCH ×4 (01:00→19:54)
[2016-08-07] MEDS: ACETAMINOPHEN/CODEINE 300 MG-30 MG TABLET PO PRN ×3 (03:02→17:45)
--- NOTE | 2016-08-07 05:07 | NUR ---
Rounds Pt is sleeping comfortably at this time. No acute distress or sob noted. Call light in hand. Will continue to monitor.
--- NOTE | 2016-08-07 06:37 | NUR ---
Closing Notes/New IV site New IV site started to right hand #22g with good blood return noted, flushed well with 10cc of NS. Assisted pt to restroom safely. Pt denies any pain or discomfort at this time. VSS. All needs met throughout shift. Will endorse care to am nurse. Call light within reach. Will continue to monitor.
--- NOTE | 2016-08-07 07:37 | NUR ---
OPENING NOTES PT SITTING UP ON EDGE OF BED, PREPARING TO EAT BREAKFAST. PT STATED SHE IS EXPERIENCING A THROBBING PAIN BEHIND HER RIGHT EAR 11/14, THIS PAIN IS CHRONIC. PLAN IS TO KEEP PAIN BELOW 3: WILL PROVIDE PRN ANALGESIC ORDERED AND CONTINUE TO MONITOR
[2016-08-07] MEDS: IPRATROPIUM BROM 0.5 MG/2.5 ML VIAL.NEB (ATROVENT) INH SCH ×4 (08:47→19:55)
[2016-08-07] MEDS: guaiFENesin/DEXTROMETHORPHAN 1 EACH TAB.ER.12H PO SCH ×2 (09:28→20:11)
[2016-08-07] MEDS: PANTOPRAZOLE SODIUM 40 MG TAB PO SCH (09:28)
[2016-08-07] MEDS: PREDNISONE 20 MG TABLET PO SCH ×2 (09:28→20:11)
[2016-08-07] MEDS: amLODIPine BESYLATE 5 MG TABLET PO SCH (09:29)
[2016-08-07] MEDS: ENALAPRIL MALEATE 5 MG TABLET (VASOTEC) PO SCH (09:29)
[2016-08-07] MEDS: FAMOTIDINE 20 MG TABLET PO SCH ×2 (09:30→20:11)
--- NOTE | 2016-08-07 10:00 | NUR ---
ROUNDS PT STATES HER PAIN HAS DIMINISHED AND THAT SHE IS COMFORTABLE. BED IN LOWEST POSITION AND CALL LIGHT WITHIN REACH
--- NOTE | 2016-08-07 12:00 | NUR ---
ROUNDS PT SITTING UP IN BED, WATCHING TV, AND STATED SHE IS COMFORTABLE. DISCUSSED DISCHARGE PLANNING
[2016-08-07] MEDS: cefTRIAXone 1 GM IVPB PREMIX 50 ML IV SCH (12:56)
--- NOTE | 2016-08-07 14:00 | NUR ---
ROUNDS PT COMFORTABLE. RESPIRATORY THERAPY AT BEDSIDE PROVIDING BREATHING TREATMENT
[2016-08-07] MEDS: AZITHROMYCIN 500 MG in NS 250 ML IV SCH (14:04)
--- NOTE | 2016-08-07 14:15 | NUR ---
DR HARRELL AT BEDSIDE EDUCATED PT ON S/S OF INSUFFICIENT OXYGENATION AND CONFIRMED PT IS TOLERATING ROOM AIR WELL. BED IN LOWEST POSITION AND PT IS COMFORTABLE.
--- NOTE | 2016-08-07 16:00 | NUR ---
Rounds Patient resting asleep. Call light at bedside. Will continue to monitor.
[2016-08-07] MEDS: MONTELUKAST 10 MG TABLET PO SCH (17:43)
--- NOTE | 2016-08-07 17:53 | NUR ---
Closing note Patient sitting at bedside, having dinner stable. Breathing comfortably on room air. Tolerating dinner. Due meds given. Pain medication given. Call light in reach.
--- NOTE | 2016-08-07 19:15 | NUR ---
change of shift.pt.initial assessment.pt.presents respiratory pattern/dyspnae upon excertion.o2 administered@2.5 l/min via nasal cannulae.pt.presents the respiratory pattern normal 4 pt.no respiratory discomfort.call light w/in pt's reach.
--- NOTE | 2016-08-07 19:40 | NUR ---
Initial Notes Pt is A/OX4. Pt is pleasant and cooperative. VSS. Plan of care discussed with pt, pt verbalized understanding. Pt is on room air with O2 saturation at 94%. All scheduled medications discussed with patient. Breathing is even and unlabored. Snacks provided. Safety precautions in place, side rails up x3 with bed in lowest, locked position. Pt is ambulatory with assist. Pt educated linen room houseperson light use and correct back demonstration noted. All needs met at this time. Call light in hand. Will continue to monitor.
--- NOTE | 2016-08-07 20:00 | NUR ---
pt.assessed.v/s assessed. o2 sat%=96% o2 administered @2.5 l/min via nasal cannulae.respiratory pattern:dyspnea/ no distress manifested.call light w/in pt's reach.
--- NOTE | 2016-08-07 22:00 | NUR ---
pt.assessed.pt.presents quiescent affect;calm,pt.request snack.provided.respiratory pattern dyspnae/ no distress. call light w/in pt's reach.
--- NOTE | 2016-08-07 23:51 | NUR ---
Rounds Pt is sleeping comfortably at this time. No acute distress or sob noted. Call light in hand. Will continue to monitor.
--- NOTE | 2016-08-08 | NUR ---
pt.assessed.pt.requested snack provided.pt.presents stable status.sob upon excertion.ccall light w/in pt's reach.
[2016-08-08] MEDS: LEVALBUTEROL HCL 0.63 MG/3 ML VIAL.NEB INH SCH ×2 (00:33→07:41)
--- NOTE | 2016-08-08 01:38 | NUR ---
Rounds Pt is sleeping comfortably at this time. No acute distress or sob noted. Call light in hand. Will continue to monitor.
--- NOTE | 2016-08-08 02:00 | NUR ---
pt.assessed.pt.presents quiescent affect;calm,asleep.dyspnea manifested.no respiratory distresss. call light w/in pt's reach.
--- NOTE | 2016-08-08 03:00 | NUR ---
pt.assessed.pt.requesting pain medication.i have administered tylenol#3po 1 tab.snack provided.
[2016-08-08] MEDS: ACETAMINOPHEN/CODEINE 300 MG-30 MG TABLET PO PRN (03:17)
--- NOTE | 2016-08-08 04:00 | NUR ---
pt.assessed.pt.presents quiescent affect;calm,asleep.call light w/in pt's reach.
[2016-08-08 04:11] VITALS: BP 146/94; PULSE 97; RESP 20; TEMP 97; O2SAT 94
--- NOTE | 2016-08-08 06:51 | NUR ---
Closing Notes Pt is sleeping comfortably at this time. No acute distress or sob noted. Pt in stable condition. VSS. IV intact. All needs met throughout shift. Will endorse care to am nurse. Call light in reach. Will continue to monitor.
[2016-08-08] MEDS: IPRATROPIUM BROM 0.5 MG/2.5 ML VIAL.NEB (ATROVENT) INH SCH ×2 (07:41)
[2016-08-08 07:50] VITALS: BP 120/48; PULSE 118; RESP 20; TEMP 97.2; O2SAT 92
--- NOTE | 2016-08-08 07:50 | NUR ---
INITIAL ROUNDS Received pt AAOx4, sitting up on bedside with no s/s resp distress, no c/o pain or discomfort. Plan of care for the day discussed-pt verbalized her understanding. Pt stated she has a nebulizer at home-will inform case investigator. Pain management, disease process, skin and safety discussed-teach back done. Contact phone number explained, call light within reach.
[2016-08-08] MEDS: PREDNISONE 20 MG TABLET PO SCH (08:51)
[2016-08-08] MEDS: FAMOTIDINE 20 MG TABLET PO SCH (08:51)
[2016-08-08] MEDS: ENALAPRIL MALEATE 5 MG TABLET (VASOTEC) PO SCH (08:51)
[2016-08-08] MEDS: PANTOPRAZOLE SODIUM 40 MG TAB PO SCH (08:51)
[2016-08-08] MEDS: guaiFENesin/DEXTROMETHORPHAN 1 EACH TAB.ER.12H PO SCH (08:52)
[2016-08-08] MEDS: amLODIPine BESYLATE 5 MG TABLET PO SCH (08:52)
--- NOTE | 2016-08-08 09:51 | NUR ---
ROUNDS Pt sitting up in bed with no s/s resp distress, no c/o pain or discomfort. No changes. Call light within reach.
[2016-08-08 12:00] VITALS: BP 139/87; PULSE 115; RESP 18; TEMP 97; O2SAT 94
[2016-08-08] MEDS: cefTRIAXone 1 GM IVPB PREMIX 50 ML IV SCH (12:08)
[2016-08-08 12:29] VITALS: BP 139/87; PULSE 115; RESP 18; TEMP 97; O2SAT 94
--- NOTE | 2016-08-08 12:30 | NUR ---
ROUNDS Pt sitting up eating her lunch with no c/o SOB, no c/o pain or discomfort. No changes.
[2016-08-08] MEDS ORDERED: ZOLP5TAB2 PO (13:38)
[2016-08-08] MEDS ORDERED: AZIT250T PO (13:38)
[2016-08-08] MEDS ORDERED: PRED20TA PO (13:44)
--- NOTE | 2016-08-08 14:00 | NUR ---
PATIENT DISCHARGED Pt given medication reconciliation form and D/C instructions. Exit Care on COPD & Asthmas explained & provided, pt verbalized her understanding. discussed with pt the results and treatment provided. Ambulatory with steady gait for discharge to home. P in stable condition, ID band removed. IV catheter removed, intact and dressing applied, no active bleeding. Rx of Prednisone, Ambien & Zithromax given. Pt stated she has a Nebulizer at home. All belongings sent wit pt. Pt left via wheelchaor to private vehicle in no distress.
--- NOTE | 2016-08-10 13:17 | NUR ---
Discharge Follow Up Phone Call: WANIGAN CLERK called and spoke with pt ([phone]). Pt states that she is doing a lot better; pt's prescriptions have been filled; there are no questions regarding discharge or medication instructions; pt has her oxygen and nebulizer at home; pt will schedule a follow up appointment with Dr. Cheema. WANIGAN CLERK offered to assist pt with scheduling follow up appointment, but pt states that she will schedule the appointment. Pt did not express any other needs or concerns and denied the need for additional follow up at this time. No further follow up phone calls required at this time.
== END 2016-08-08 14:00 | disposition home or self-care (01) | DRG 189 ==
LOC: SED 09:46 → STU 11:15
PROVIDERS: ADMIT Internal Medicine; ATTEND Internal Medicine
DX: J96.21 Acute and chronic respiratory failure with hypoxia (principal); J44.1 Chronic obstructive pulmonary disease with (acute) exacerbation; J44.0 Chronic obstructive pulmonary disease with (acute) lower respiratory infection; E66.9 Obesity, unspecified; E78.5 Hyperlipidemia, unspecified; F17.200 Nicotine dependence, unspecified, uncomplicated; F41.9 Anxiety disorder, unspecified; I10 Essential (primary) hypertension; J20.9 Acute bronchitis, unspecified; F17.290 Nicotine dependence, other tobacco product, uncomplicated; K21.9 Gastro-esophageal reflux disease without esophagitis; M79.7 Fibromyalgia; Z87.01 Personal history of pneumonia (recurrent); Z99.81 Dependence on supplemental oxygen; Z79.52 Long term (current) use of systemic steroids; Z88.7 Allergy status to serum and vaccine; Z79.899 Other long term (current) drug therapy; Z68.38 Body mass index [BMI] 38.0-38.9, adult
CPT/HCPCS: 36415; 36600; 71010; 80048; 80053; 81000-TC; 82803-TC; 83605; 83880; 84439; 84443-TC; 84484; 85025; 85379; 87040-TC; 87086; 93005; 94640; 94760; 96374; 99285; J0456; J0696; J1030; J2930; J7050; J7512